=== PATIENT | male | born 1935 | race Caucasian/White ===

== ENCOUNTER 2018-03-03 00:55 | Inpatient (IN) | payer OTHER ==
[~2018-03-03] VITALS: Ht 175.3 cm; Wt 99.8 kg
--- NOTE | 2018-03-03 00:55 | NUR ---
PT BIBA ALS, TAKEN TO BED 10
[2018-03-03 00:57] VITALS: BP 107/64
--- NOTE | 2018-03-03 00:57 | NUR ---
Dr. Bravo evaluating patient at bedside.
--- NOTE | 2018-03-03 01:10 | NUR ---
82 Y/O M BIBA W/C/O "GRANDMAL SEZIURE X 10 MINS. PT HAS HX OF SEZIURE AND LAST SEIZURE WAS IN MARCH THEY WERE TRYING TO WEINE HIM OFF MEDICATION. PT REPORTADLY WAS LAST SEEN NORMAL AT 10 PM PER FAMILY." LUNGS CLEAR BL, BREATHING UNLABORED; HR EVEN AND REGULAR, BL PERIPHERAL PULSES PRESENT; FLACC-0 PAIN AT THIS TIME; VSS; PATIENT POSITIONED FOR COMFORT; HOB ELEVATED; BEDRAILS UP X2; BED DOWN.
[2018-03-03] MEDS ORDERED: HALOPERIDOL IM 5 MG/ML VIAL IM ONE (02:10)
[2018-03-03] MEDS ORDERED: LORazepam 2 MG/ML VIAL IVP ONE (02:35)
[2018-03-03 02:55] LABS: BASOPHILS % (AUTO) 0.2 % (0.0-2.0); EOSINOPHILS % (AUTO) 0.1 % (0.0-4.0); HEMATOCRIT 40.3 % (36-52); HEMOGLOBIN 13.1 g/dL (12.0-18.0); LYMPHOCYTES # (AUTO) 1.1 K/uL (2.0-11.5); LYMPHOCYTES % (AUTO) 9.5 % (20.5-51.1); MEAN CORPUSCULAR HEMOGLOBIN 30 pg (27-31); MEAN CORPUSCULAR HGB CONC 33 g/dL (33-37); MEAN CORPUSCULAR VOLUME 93.5 fL (80-94); MONOCYTES # (AUTO) 0.6 K/uL (0.8-1.0); MONOCYTES % (AUTO) 5.1 % (1.7-9.3); NEUTROPHILS # (AUTO) 10.2 K/uL (1.8-7.7); PLATELET COUNT (AUTO) 209 K/uL (140-450); RED BLOOD CELL COUNT(AUTO) 4.31 MIL/uL (4.20-6.10); RED CELL DISTRIBUTION WIDTH 13.6 % (11.6-13.7)
[2018-03-03 03:02] LABS: NEUTROPHILS % (AUTO) 85.1 % (42.2-75.2)
[2018-03-03 03:08] LABS: ALBUMIN 3.8 g/dL (3.4-5.0); ANION GAP 9.7 (8-16); ASPARTATE AMINOTRANSFERASE 21 U/L (15-37); CARBON DIOXIDE 29.6 mmol/L (21-32); CHLORIDE 102 mmol/L (98-107); CREATININE 1.4 mg/dL (0.7-1.3); GLUCOSE 178 mg/dL (74-106); LIPASE 139 U/L (73-393); POTASSIUM 3.3 mmol/L (3.5-5.1); SODIUM SERUM 138 mmol/L (136-145); TOTAL BILIRUBIN 0.4 mg/dL (0.0-1.0); UREA NITROGEN, BLOOD 19 mg/dL (7-18)
--- NOTE | 2018-03-03 03:15 | NUR ---
PT RETURNS FROM CT W/OUT INCIDENT.
--- NOTE | 2018-03-03 03:50 | NUR ---
PT SLEEPING. RESP. EVEN/UNLABORED; NAD. VSS. PT AWAITS CT/LAB RESULTS AND MD DISPOSITION. WILL CONTINUE TO MONITOR.
--- NOTE | 2018-03-03 05:30 | NUR ---
PT RESTING. PT AWAITS ADMISSION. NAD. VSS. WILL CONTINUE TO MONITOR.
[2018-03-03] MEDS ORDERED: NACL 0.9% 1,000 ML IV SCH (06:08)
[2018-03-03] MEDS ORDERED: ONDANSETRON 4 MG/2 ML VIAL IM/IVP PRN (06:10)
[2018-03-03] MEDS ORDERED: LORazepam 2 MG/ML VIAL IM/IVP PRN (06:10)
[2018-03-03] MEDS ORDERED: ACETAMINOPHEN 325 MG TAB PO PRN (06:10)
[2018-03-03] MEDS ORDERED: DOCUSATE SODIUM 100 MG GELCAP PO PRN (06:10)
[2018-03-03] MEDS ORDERED: HYDROcodone/APAP 5/325 MG 1 TAB TAB PO PRN (06:10)
--- NOTE | 2018-03-03 06:25 | NUR ---
RESIDENT DOCTOR SPOKE WITH PT
--- NOTE | 2018-03-03 07:10 | NUR ---
REPORT GIVEN TO ALEXA JOLLEY TO ASSUMED CARE.
--- NOTE | 2018-03-03 07:35 | NUR ---
PT. IN BED W/ SOFT RESTRAINTS IN PLACE, ALTERED MOVING AROUND TRYING TO REMOVE PULSE OX. RR EVEN AND UNLABORED. VSS.
--- NOTE | 2018-03-03 07:55 | NUR ---
PT. RIPPED OFF CATHETER, MEAUTUS NOTICEABLY BLEEDING, ER MD ABDALLA MADE AWARE. PT. CLEANED AND PUT IN DEPENDS.
--- NOTE | 2018-03-03 08:15 | NUR ---
Patient will be admitted to care of DR. PARSONS . Admited to TELE . Will go to room 110B . Belongings list completed. Report to ALEXA AYALA .
[2018-03-03 08:20] VITALS: BP 148/70
--- NOTE | 2018-03-03 08:20 | NUR ---
RECEIVED BEDSIDE REPORT FROM ER NURSE. PATIENT IS NONVERBAL AT THIS TIME. NO SIGNS OF DISTRESS ON RA. VITALS WITHIN NORMAL LIMITS. MRSA SWAB IS DONE. SKIN IS INTACT. FALL RISK PROTOCOL IN PLACE. SEIZURE PRECAUTIONS IN PLACE. IV ON R HAND 20G CLEAN, DRY AND INTACT. TELE MONITOR IN PLACE. ALL QUESTIONS ANSWERED BY . PATIENT USUALLY CONTINENT BUT SAID PATIENT WAS INCONTINENT W SEIZURE BEFORE HOSPITALIZATION. PATIENT HAS WEAKNESS AND IS DROWSY. BED IN LOW POSITION. CALL LIGHT WITHIN REACH. WILL CONTINUE TO MONITOR THE PATIENT. WRIST RESTRAINTS IN PLACE, PATIENT PULLED OUT DUNCAN CATH IN ER. PATIENT STILL ATTEMPTING TO REMOVE IV AT THIS TIME
[2018-03-03] MEDS ORDERED: POTASSIUM CHLORIDE 20% 40 MEQ/15 ML UDC PO SCH (09:22)
[2018-03-03] MEDS: levETIRAcetam 500 MG in NACL 0.9% 100 ML IV SCH ×2 (09:36→22:47)
--- NOTE | 2018-03-03 10:00 | NUR ---
PATIENT IS SLEEPING. NO SIGNS OF DISTRESS ON RA. WILL CONTINUE TO MONITOR THE PATIENT
[2018-03-03 10:19] LABS: APPEARANCE,URINE CLEAR (CLEAR); BILIRUBIN,URINE NEGATIVE (NEGATIVE); BLOOD, URINE 2+ (NEGATIVE); COLOR,URINE YELLOW (YELLOW); LEUKOCYTE ESTERASE ,URINE NEGATIVE (NEGATIVE); NITRITE, URINE NEGATIVE (NEGATIVE); UGLUCOSE NEGATIVE (NEGATIVE)
[2018-03-03 10:28] LABS: RBC,URINE 3-10 (FEW) /HPF (0-5); WBC,URINE 0-5 (RARE) /HPF (0-5)
[2018-03-03 10:34] LABS: PROTHROMBIN TIME 9.6 secs (10.8-13.4)
[2018-03-03 10:47] LABS: BARBITURATE, URINE NEG. ng/ml (NEG <=200); BENZODIAZEPINE, URINE POS. ng/mL (NEG <=200); CANNABINOID, URINE NEG. ng/mL (NEG <=50); COCAINE, URINE NEG. ng/mL (NEG <=300); OPIATE, URINE NEG. ng/mL (NEG <=2000); PHENCYCLIDINE SCREEN,URINE NEG. ng/mL (NEG <=25)
[2018-03-03 11:11] LABS: CHOL/HDL RATIO 3.4 (1-4.5); MAGNESIUM 1.9 mg/dL (1.8-2.4); PHOSPHORUS 2.6 mg/dL (2.5-4.9); THYROID STIMULATING HORMONE 1.21 uIU/mL (0.34-3.74)
[2018-03-03] MEDS: DEXT 5% / NACL 0.45% 1,000 ML IV SCH ×2 (11:24→19:55)
--- NOTE | 2018-03-03 11:30 | NUR ---
ADMINISTER MEDS ORDERED. PATIENT TOLERATED WELL. NO SIGNS OF DISTRESS ON RA. WILL CONTINUE TO MONITOR THE PATIENT.
[2018-03-03 12:00] VITALS: BP 145/90
--- NOTE | 2018-03-03 13:00 | NUR ---
PATIENT IS SLEEPING. NO SIGNS OF DISTRESS ON RA. WILL CONTINUE TO MONITOR
[2018-03-03] MEDS ORDERED: HYDR-5 PO (13:43)
[2018-03-03] MEDS ORDERED: AMLO10TA4 PO (13:43)
--- NOTE | 2018-03-03 14:00 | NUR ---
PATIENTS , KWADWO BROUGHT MEDICATIONS. YUDI LOOKED AT THE MEDS. NO COMPLAINTS AT THIS TIME. WILL CONTINUE TO MONITOR THE PATIENT
--- NOTE | 2018-03-03 15:30 | NUR ---
PATIENT IS SLEEPING. NO SIGNS OF DISTRESS ON RA. WILL CONTINUE TO MONITOR THE PATIENT
[2018-03-03 16:00] VITALS: BP 137/80
--- NOTE | 2018-03-03 16:17 | NUR ---
PATIENT IS KICKING BLANKETS OFF. ATTEMPTING TO REMOVE EVERYTHING. RESTRAINTS IN PLACE. WILL CONTINUE TO MONITOR
--- NOTE | 2018-03-03 17:28 | NUR ---
PATIENT IS SLEEPING. WILL CONTINUE TO MONITOR THE PATIENT
--- NOTE | 2018-03-03 19:32 | NUR ---
gave bedside report to warehouse shift supervisor nurse. patient endorsed in stable condition
--- NOTE | 2018-03-03 19:33 | NUR ---
RECEIVED REPORT FROM NATHANAEL RN DAYSHIFT NURSE AT BEDSIDE FOR CONTINUITY OF CARE, PT IN STABLE CONDITION.
[2018-03-03 20:00] VITALS: BP 126/69
--- NOTE | 2018-03-03 20:30 | NUR ---
PT IN LOW BED WITH ALL FALLS AND SEIZURE PRECAUTIONS IN PLACE. PT IS A0X1 HE IS ALERT AND VERBAL BUT SLEEPY. PT IS AFGHAN SPEAKING ONLY AND IS ABLE TO MAKE NEEDS KNOWN. PT CURRENTLY ON RESTRAINTS DUE TO CONFUSION AND PULLING OUT DUNCAN CATHETER. PT IS CURRENTLY CALM AND COOPERATIVE, HE WAS OFFERED FLUIDS AND TOILETING. PT SAID THAT HE WANT TO GET UP BUT WAS REMINDED THAT HE RECENTLY HAD 2 SEIZURES AND THAT HE NEEDED TO REST, PT AGREEABLE AND VERBALIZED UNDERSTANDING. V/S FOLLOWS T 98.1 P 66 R 18 B/P 126/69 02 97% WITH ROOM AIR. RESTRAINTS RELEASED FOR 15 MINUTES, SKIN IN TACT.
--- NOTE | 2018-03-03 21:00 | NUR ---
PT IN LOW BED RESTING BUT AROUSABLE TO NAME. KEPPRA HUNG ORDERED AND RUNNING AT 210. D5WITH 1/2 NS HUNG AND SET TO RUN AT 100MLS/HR ORDERED.
--- NOTE | 2018-03-03 22:00 | NUR ---
PT CONTINUES OFF RESTRAINTS AND OFFERED FLUIDS AND TOILETING, PT DECLINED AT THIS TIME, PT NOT ATTEMPTING TO REMOVE EQUIPMENT. ALL FALLS AND SEIZURE PRECAUTIONS IN PLACE.
--- NOTE | 2018-03-03 23:00 | NUR ---
PT UP TO TOILET AND AMBULATED STEADILY TO TOILET WITH STANDBY ASSIST. PT AWAKE AND AWARE THAT HE IS IN A HOSPITAL AND AWARE THAT IT IS SUNDAY, ISAIAS. PT HAS NO C/O VOICEDE ALL FALLS AND SEIZURE PROTOCOLS IN PLACE WITH CALL GERBER IN REACH.
[2018-03-04] VITALS: BP 89/50
--- NOTE | 2018-03-04 00:30 | NUR ---
PT IN BED SLEEPING SOUNDLY NO S/S OF PAIN OR DISTRESS NOTEDL HAND 20GUAGE INTACT AND RUNNING D5 AND NS AT 100MLS/HR.
[2018-03-04 04:00] VITALS: BP 112/61
[2018-03-04] MEDS: DEXT 5% / NACL 0.45% 1,000 ML IV SCH (05:20)
--- NOTE | 2018-03-04 07:20 | NUR ---
ENDORSED CARE TO MORGAN LIU DAYSHIFT NURSE, PT IN STABLE CONDITION.
--- NOTE | 2018-03-04 07:22 | NUR ---
RECEIVED REPORT FROM NIGHT RN. PT RESTING IN BED. AAOX1. NO S/S OF ACUTE DISTRESS. PT DENIES PAIN. IV SITE PATENT AND INTACT. CALL LIGHT WITHIN REACH. SAFETY MEASURES ENSURED. WILL CONTINUE TO MONITOR.
[2018-03-04 07:52] LABS: BASOPHILS % (AUTO) 0.5 % (0.0-2.0); EOSINOPHILS # (AUTO) 0.1 K/uL (0-0.4); EOSINOPHILS % (AUTO) 1.5 % (0.0-4.0); HEMATOCRIT 38.1 % (36-52); HEMOGLOBIN 12.3 g/dL (12.0-18.0); LYMPHOCYTES # (AUTO) 1.7 K/uL (2.0-11.5); LYMPHOCYTES % (AUTO) 26.2 % (20.5-51.1); MEAN CORPUSCULAR HEMOGLOBIN 30 pg (27-31); MEAN CORPUSCULAR HGB CONC 32 g/dL (33-37); MONOCYTES # (AUTO) 0.7 K/uL (0.8-1.0); MONOCYTES % (AUTO) 10.9 % (1.7-9.3); NEUTROPHILS # (AUTO) 3.9 K/uL (1.8-7.7); NEUTROPHILS % (AUTO) 60.9 % (42.2-75.2); PLATELET COUNT (AUTO) 206 K/uL (140-450); RED BLOOD CELL COUNT(AUTO) 4.05 MIL/uL (4.20-6.10); RED CELL DISTRIBUTION WIDTH 13.9 % (11.6-13.7); WHITE BLOOD COUNT (AUTO) 6.5 K/uL (4.8-10.8)
[2018-03-04 08:00] VITALS: BP 125/73
[2018-03-04 08:15] LABS: ANION GAP 10.5 (8-16); CARBON DIOXIDE 29.5 mmol/L (21-32); CHLORIDE 103 mmol/L (98-107); GLUCOSE 129 mg/dL (74-106); SODIUM SERUM 139 mmol/L (136-145); UREA NITROGEN, BLOOD 11 mg/dL (7-18)
[2018-03-04 08:17] LABS: MAGNESIUM 2.1 mg/dL (1.8-2.4); PHOSPHORUS 2.7 mg/dL (2.5-4.9)
--- NOTE | 2018-03-04 08:30 | NUR ---
MORNING MEDS GIVEN WITH EDUCATION. PT UNABLE TO VERBALIZE UNDERSTANDING. CALL LIGHT WITHIN REACH. SAFETY MEASURES ENSURED. WILL CONTINUE TO MONITOR.
[2018-03-04] MEDS: amLODIPine 5 MG TAB PO SCH (09:00)
[2018-03-04] MEDS: LISINOPRIL 10 MG TAB PO SCH (09:01)
[2018-03-04] MEDS: HYDROCHLOROTHIAZIDE 25 MG TAB PO SCH (09:02)
[2018-03-04] MEDS: levETIRAcetam 500 MG in NACL 0.9% 100 ML IV SCH (09:03)
--- NOTE | 2018-03-04 09:22 | NUR ---
PATIENT HAS BEEN SCREENED AND CATEGORIZED MODERATE NUTRITION RISK. PATIENT WILL BE SEEN WITHIN 3-5 DAYS OF ADMISSION. 03/05/18 03/07/[address]
[2018-03-04 12:00] VITALS: BP 136/75
--- NOTE | 2018-03-04 12:07 | NUR ---
PT SLEEPING IN BED. NO S/S OF ACUTE DISTRESS. PT AAOX2. CALL LIGHT WITHIN REACH. SAFETY MEASURES ENSURED. WILL CONTINUE TO MONITOR.
[2018-03-04] MEDS: NACL 0.9% 1,000 ML IV SCH (13:25)
[2018-03-04 15:48] VITALS: BP 125/70
--- NOTE | 2018-03-04 15:49 | NUR ---
PT SLEEPING IN BED. NO S/S OF ACUTE DISTRESS. PT DENIES PAIN. WILL CONTINUE TO MONITOR.
--- NOTE | 2018-03-04 19:20 | NUR ---
REPORT RECEIVED FROM MORGAN LIU DAYSHIFT NURSE AT BEDSIDE FOR CONTINUITY OF CARE, PT IN STABLE CONDITION.
[2018-03-04 20:00] VITALS: BP 106/64
--- NOTE | 2018-03-04 20:00 | NUR ---
PT SITTING UP IN BED ALL FALLS AND SEIZURE PRECAUTIONS IN PLACE AND CALL GERBER IN REACH. PT AOX3 AT THIS TIME, WITH NO COMPLAINTS OF PAIN. V/S FOLLOWS T 98.4 P 68 R 20 B/P 106/64 02 95% ON ROOM AIR.
--- NOTE | 2018-03-04 21:45 | NUR ---
OT IV LINE G 20 ON R F/A WAS INFILTRATED IV SITE REMOVED, ATTEMPTED REINSERTION X2 UNSUCCESSFUL, ENDORSED TO CHARGE AND RAÚL QUINN RN WAS ABLE TO INSERT A 22G ON R F/A FLUSHED SUCCESSFULLY. PT TOLERASTED PROCEDURE WELL. IV KEPPRA RUNNING ORDERED AT 210 AN HR. NEW FLUIDS OF NS AT 60MLS HUNG.
[2018-03-04] MEDS: levETIRAcetam 750 MG in NACL 0.9% 100 ML IV SCH (22:56)
[2018-03-05] VITALS: BP 110/65
--- NOTE | 2018-03-05 00:30 | NUR ---
PT IN BED AOX2-3 WITH ALL FALLS AND SEIZURE PRECAUTIONS IN PLACE. PT IS CALM COOPERATIVE AND PLEASANT HE DENIES ANY PAIN, CALL GERBER IN REACH AND ALL REQUESTED NEEDS ATTENDED BY STAFF. V/S FOLLOWS T 98.6 P 62 R 18 B/P 110/65 02 98% ON R/A. WILL CONTINUE TO MONITOR PT FOR ANY SEIZURES OR SIDE EFFECTS OF MEDICATION.
--- NOTE | 2018-03-05 01:45 | NUR ---
PT HAD AN EPISODE OF BRADYCARDIA AND HR WENT DOWN TO 39. CHARGE NURSE RN WOKE UP PT AND HR WENT BACK UP TO 65. RESIDENT AWARE THAT PT HAS HAD EPISODES OF BRADYCARDIA.
[2018-03-05 04:00] VITALS: BP 135/63
--- NOTE | 2018-03-05 04:00 | NUR ---
PT IN BED WITH ALL FALLS PRECAUTIONS IN PLACE. PT DENIES ANY PAIN AND ALL REQUESTED NEEDS ATTENDED BY STAFF.V/S FOLLOWS T 97.4 P 65 R18 R 18 B/P 135/63 02 98% WITH ROOM AIR.
[2018-03-05] MEDS: NACL 0.9% 1,000 ML IV SCH ×2 (07:04→21:26)
[2018-03-05 07:09] LABS: BASOPHILS % (AUTO) 0.5 % (0.0-2.0); EOSINOPHILS # (AUTO) 0.1 K/uL (0-0.4); EOSINOPHILS % (AUTO) 1.3 % (0.0-4.0); HEMATOCRIT 38.2 % (36-52); HEMOGLOBIN 12.4 g/dL (12.0-18.0); LYMPHOCYTES # (AUTO) 2.2 K/uL (2.0-11.5); LYMPHOCYTES % (AUTO) 25.3 % (20.5-51.1); MEAN CORPUSCULAR HEMOGLOBIN 31 pg (27-31); MEAN CORPUSCULAR HGB CONC 32 g/dL (33-37); MEAN CORPUSCULAR VOLUME 94.5 fL (80-94); MONOCYTES # (AUTO) 0.8 K/uL (0.8-1.0); MONOCYTES % (AUTO) 9.1 % (1.7-9.3); NEUTROPHILS # (AUTO) 5.5 K/uL (1.8-7.7); NEUTROPHILS % (AUTO) 63.8 % (42.2-75.2); PLATELET COUNT (AUTO) 177 K/uL (140-450); RED BLOOD CELL COUNT(AUTO) 4.04 MIL/uL (4.20-6.10); RED CELL DISTRIBUTION WIDTH 13.8 % (11.6-13.7); WHITE BLOOD COUNT (AUTO) 8.6 K/uL (4.8-10.8)
[2018-03-05 07:22] LABS: ANION GAP 10.7 (8-16); CARBON DIOXIDE 29.2 mmol/L (21-32); CHLORIDE 105 mmol/L (98-107); GLUCOSE 106 mg/dL (74-106); POTASSIUM 3.9 mmol/L (3.5-5.1); SODIUM SERUM 141 mmol/L (136-145); UREA NITROGEN, BLOOD 14 mg/dL (7-18)
--- NOTE | 2018-03-05 07:30 | NUR ---
RECEIVED PATIENT REPORT AT BEDSIDE. PATIENT AWAKE, ALERT AND ORIENTED. NO S/S OF DISTRESS. PATIENT ON ROOM AIR. PATIENT DENIES PAIN AT THIS TIME. FALL PRECAUTIONS IN PLACE. WILL CONTINUE TO MONITOR
--- NOTE | 2018-03-05 07:36 | NUR ---
REPORT GIVEN TO JOESPH RN DAYSHIFT NURSE AT BEDSIDE FOR CONTINUITY OF CARE, PT IN STABLE IN STABLE CONDITION.
[2018-03-05 07:37] VITALS: BP 143/83
[2018-03-05] MEDS: levETIRAcetam 750 MG in NACL 0.9% 100 ML IV SCH ×2 (08:36→21:26)
[2018-03-05] MEDS: LISINOPRIL 10 MG TAB PO SCH (08:37)
[2018-03-05] MEDS: HYDROCHLOROTHIAZIDE 25 MG TAB PO SCH (08:37)
[2018-03-05] MEDS: amLODIPine 5 MG TAB PO SCH (08:38)
--- NOTE | 2018-03-05 08:45 | NUR ---
PATIENT AMBULATED TO THE BATHROOM TO VOID. NO S/S OF DISTRESS NOTED
[2018-03-05 17:39] VITALS: BP 133/74
--- NOTE | 2018-03-05 17:45 | NUR ---
PT ASLEEP IN BED. NO S/S OF DISTRESS NOTED
--- NOTE | 2018-03-05 19:30 | NUR ---
PATIENT REPORT GIVEN AT BEDSIDE. PATIENT ENDORSED IN STABLE CONDITION
--- NOTE | 2018-03-05 19:30 | NUR ---
RECEIVED BEDSIDE REPORT FROM ALEXA KIRK, PATIENT IN BED, ON RA, NO SIGNS OF ACUTE SEIZURE ACTIVITY, IV IN LEFT FA, 18 G, INFUSING NS AT 60 ML/HR, PATIENT AAOX4, EXPLAINED PLAN OF CARE, UPDATED BOARD, WILL CONTINUE TO MONITOR.
--- NOTE | 2018-03-05 21:26 | NUR ---
DUE MOSHE ZUNIGA, IV PATENT. WILL CONTINUE TO MONITOR.
--- NOTE | 2018-03-05 22:45 | NUR ---
PATIENT AMBULATED TO RESTROOM UNSTEADY GAIT, NEEDS ONE PERSON ASSIST.
[2018-03-06] VITALS: BP 145/74
--- NOTE | 2018-03-06 | NUR ---
V.S TAKEN ALL WITHIN BASELINE, WILL CONTINUE TO MONITOR.
--- NOTE | 2018-03-06 02:30 | NUR ---
PATIENT RESTING IN BED, NO SIGNS OF DISTRESS, CALL LIGHT WITHIN REACH, WILL CONTINUE TO MONITOR.
[2018-03-06] MEDS: NACL 0.9% 1,000 ML IV SCH (04:59)
--- NOTE | 2018-03-06 04:59 | NUR ---
STARTED NEW BAG NS INFUSING AT 60 ML/HR.
--- NOTE | 2018-03-06 06:30 | NUR ---
IV CAME OUT, CATH INTACT, STARTED NEW IV IN LEFT AC 20 G, INFUSING NS AT 60 ML/HR.
--- NOTE | 2018-03-06 07:25 | NUR ---
RECEIVED BEDSIDE REPORT FROM RETAIL STOCK CLERK NURSE. PT AXOX4. NO SIGNS OF DISTRESS IN RA. MS PT. PT AMBULATE W MINIMAL ASSISTANCE. SKIN DRY, CLEAN AND INTACT. IV SITE DRY, INTACT, L FA 20G. INFUSING NS 60ML/HR. PT CONTINENT. FALL RISK PRECAUTION IN PLACE. BED IN LOW POSITION, CALL LIGHT WITHIN REACH. WILL CONTINUE TO MONITOR.
--- NOTE | 2018-03-06 07:29 | NUR ---
ENDORSED PATIENT O DAY SHIFT NURSE, PATIENT STABLE.
--- NOTE | 2018-03-06 07:30 | NUR ---
RECEIVED BEDSIDE REPORT FROM CARPENTERS HELPER NURSE. PATIENT IS AWAKE, ALERT AND ORIENTEDX4. NO SIGNS OF DISTRESS ON RA. IV ON L AC 20G INFUSING NS AT 60. CLEAN, DRY AND INTACT. SKIN IS INTACT. PATIENT HAS WEAKNESS, FALL RISK PROTOCOL IN PLACE. AMBULATE W ASSIST. MED SURGE. SEIZURE PRECAUTIONS IN PLACE. PATIENT IS CONTINENT. BED IN LOW POSITION. CALL LIGHT WITHIN REACH. WILL CONTINUE TO MONITOR THE PATIENT
[2018-03-06] MEDS ORDERED: LEVE750T3 PO (07:51)
[2018-03-06 08:00] VITALS: BP 146/69
[2018-03-06] MEDS: HYDROCHLOROTHIAZIDE 25 MG TAB PO SCH (09:00)
[2018-03-06] MEDS: amLODIPine 5 MG TAB PO SCH (09:00)
[2018-03-06] MEDS: LISINOPRIL 10 MG TAB PO SCH (09:00)
--- NOTE | 2018-03-06 09:00 | NUR ---
ADMINISTERED MEDS. PATIENT TOLERATED WELL. NO SIGNS OF DISTRESS. BED IN LOW POSITION. CALL LIGHT WITHIN REACH
[2018-03-06] MEDS: levETIRAcetam 750 MG in NACL 0.9% 100 ML IV SCH (09:53)
--- NOTE | 2018-03-06 10:00 | NUR ---
ADMINISTERED MEDS. PATIENT TOLERATED WELL. NO SIGNS OF DISTRESS
--- NOTE | 2018-03-06 11:30 | NUR ---
CALLED , KWADWO, LEFT A MESSAGE ABOUT HUSBANDS DISCHARGE TODAY
--- NOTE | 2018-03-06 13:04 | NUR ---
CM NOTE FAXED ORDER FOR WALKER AND PT EVAL NOTES TO MY FAMILY [phone]. LEFT MESSAGE TO MY FAMILY MARCO ANTONIO KYLE PH# [phone], NO CALL BACK AT THIS TIME. NICOLAS ROMEO.
--- NOTE | 2018-03-06 13:30 | NUR ---
CALLED AYLA GARCIA TO ASK FOR AN UPDATE FOR THE WALKER. SHE SAID THAT THE WALKER WILL BE DELIVERED HERE BUT NO TIME OR AUTHORIZATION YET.
--- NOTE | 2018-03-06 14:25 | NUR ---
CM NOTE LEFT VM TO MY FAMILY CM KYLE PH# [phone] AND COORDINATOR MELLISA [phone] TO FOLLOW UP ON THE ORDER FOR WALKER. NO CALL BACK AT THIS TIME. I ALSO LEFT THEM THE NUMBER TO THE [facility] WHERE PATIENT IS IN CASE THEY CALL AT A LATER TIME TODAY. NICOLAS ROMEO.
--- NOTE | 2018-03-06 15:05 | NUR ---
NO WALKER NEEDED. DR TORRES SAID HE WILL CANCEL THE WALKER ORDER. PATIENT SAID HE HAS A WALKER AT HOME ALREADY.
--- NOTE | 2018-03-06 15:20 | NUR ---
EDUCATED PATIENT ON DISEASE PROCESS, ABN S/SX, WHEN TO GO TO THE ER, EDUCATED ON MEDS AND GAVE PRESCRIPTIONS, EDUCATED ON F/U W PCP, EDUCATED ON WALKER USE, PATIENT AND SAID THAT THEY HAVE A WALKER AT HOME THAT IS BRAND NEW AND PATIENT REFUSES TO USE IT. TOLD HIM PT THINKS HE SHOULD USE A WALKER FOR SAFETY. PATIENT REFUSES, STATES HIS GAIT IS STEADY AND WILL USE HIS CANE. PNA AND FLU VACCINES ARE UP TO DATE. IV REMOVED, TIP INTACT. ID BANDS REMOVED. PATIENT LEFT IN STABLE CONDITION IN WHEELCHAIR.
--- NOTE | 2018-03-06 15:23 | NUR ---
CM NOTE INFORMED MY FAMILY MARCO ANTONIO KYLE THAT ORDER FOR WALKER IS BEING CANCELLED BY DR. TORRES.
== END 2018-03-06 15:20 | disposition home or self-care (01) | DRG 100 ==
LOC: MED 00:55 → MTU 06:12 → MMU 03-05 21:00
PROVIDERS: ADMIT General Practice; ATTEND General Practice
PROC: 4A00X4Z Measurement of Central Nervous Electrical Activity, External Approach (ICD-10-PCS; principal; 2018-03-04)
DX: G40.909 Epilepsy, unspecified, not intractable, without status epilepticus (principal); N17.0 Acute kidney failure with tubular necrosis; R65.10 Systemic inflammatory response syndrome (SIRS) of non-infectious origin without acute organ dysfunction; G90.8 Other disorders of autonomic nervous system; E87.6 Hypokalemia; E66.9 Obesity, unspecified; I10 Essential (primary) hypertension; R73.9 Hyperglycemia, unspecified; Z68.32 Body mass index [BMI] 32.0-32.9, adult; Z79.899 Other long term (current) drug therapy
CPT/HCPCS: 36415; 51702; 70450; 71045; 80048; 80053; 80305; 81001; 82150; 83036; 83605; 83690; 83735; 83880; 84100; 84443; 84484; 85025; 85610; 85730; 87081; 93005; 93880; 95816; 96372; 96374; 97116; 97530; 99285; J1630; J1953; J2060; J7030; Q0092